=== PATIENT | female | born 1970 | race Caucasian/White ===

== ENCOUNTER 2021-11-14 08:54 | Emergency (ER) | payer MEDICAID ==
[~2021-11-14] VITALS: Ht 157.5 cm; Wt 59.9 kg
--- NOTE | 2021-11-14 09:33 | NUR ---
PT SEEN AND EVALUATED BY DR ROUSE.
--- NOTE | 2021-11-14 09:37 | NUR ---
DISCHARGE INSTRUCTIONS RENDERED PER MD ORDERS
[2021-11-14 09:38] VITALS: BP 135/85
== END 2021-11-14 09:51 | disposition home or self-care (01) ==
LOC: ER 08:57
DX: H10.11 Acute atopic conjunctivitis, right eye (principal); H02.841 Edema of right upper eyelid; H02.842 Edema of right lower eyelid; E06.3 Autoimmune thyroiditis; Z88.1 Allergy status to other antibiotic agents; Z88.0 Allergy status to penicillin; Z88.8 Allergy status to other drugs, medicaments and biological substances
CPT/HCPCS: A4663

== ENCOUNTER 2023-03-04 14:34 | Emergency (ER) | payer MEDICAID, OTHER ==
[~2023-03-04] VITALS: Ht 157.5 cm; Wt 56.7 kg
[2023-03-04 15:19] VITALS: O2SAT 100
== END 2023-03-04 21:00 | disposition left against medical advice (07) ==
LOC: ER 14:34
DX: Z53.21 Procedure and treatment not carried out due to patient leaving prior to being seen by health care provider (principal)
CPT/HCPCS: A4606; A4663